=== PATIENT | female | born 2005 | race American Indian/Alaskan Native ===

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

== ENCOUNTER 2025-06-05 07:01 | Emergency (ER) | payer OTHER, MEDICAID ==
[2025-06-05] MEDS ORDERED: Sodium Chloride 0.9% 10 ML Syringe FLUSH PRN (07:11)
[2025-06-05 07:22] LABS: BASOPHILS PERCENT AUTO 0.3 % (0.0-1.0); EOSINOPHILS PERCENT AUTO 0.6 % (1.0-3.0); LYMPHOCYTES PERCENT AUTO 17.9 % (20.5-50.1); MONOCYTES PERCENT AUTO 5.6 % (2-8); NEUTROPHILS PERCENT AUTO 75.6 % (42.2-75.2); PLATELET COUNT,PLT 508 10^3/uL (150-450); RED BLOOD CELL COUNT 5.12 10^6/uL (4.2-5.4); WHITE BLOOD CELL COUNT,WBC 10.4 10^3/uL (5.0-10.0)
[2025-06-05 07:45] LABS: A/G RATIO 0.7; ALANINE AMINOTRANSFERASE,ALT 25 U/L (14-59); BLOOD UREA NITROGEN,BUN 7 mg/dL (7-18); CARBON DIOXIDE,CO2 22 mmol/L (21-32); CHLORIDE,CL 108 mmol/L (98-107); GLUCOSE RANDOM 112 mg/dL (70-99); POTASSIUM,K 3.3 mmol/L (3.5-5.1); PROTEIN TOTAL,TP 8.3 g/dL (6.4-8.2); SODIUM,NA 143 mmol/L (136-145)
[2025-06-05 07:52] LABS: LACTIC ACID 3.2 mmol/L (0.4-2.0)
[2025-06-05 07:55] LABS: HCG QUALITATIVE,SERUM NEGATIVE (NEGATIVE)
[2025-06-05 08:02] LABS: CREATININE 0.68 mg/dL (0.55-1.02)
[2025-06-05 08:04] LABS: ASPARTATE AMNIOTRANSFERASE,AST 19 U/L (15-37); BILIRUBIN TOTAL 0.1 mg/dL (0.2-1.0); ESTIMATED GFR 128 mL/min (>=60); ETHANOL BLOOD MEDICAL 168 mg/dL (0)
[2025-06-05 08:24] LABS: INR 1.0 (0.9-1.2); PTT,PARTIAL THROMBOPLSTIN TIME 24.3 SEC (22.0-34.0)
[2025-06-05] MEDS: Lidocaine 2% with EPINEPHrine 1:200,000 20 ML SDV INJECT ONE (10:42)
== END 2025-06-05 12:00 | disposition home or self-care (01) ==
LOC: DL.ED 07:01
DX: S61.012A Laceration without foreign body of left thumb without damage to nail, initial encounter (principal); S09.90XA Unspecified injury of head, initial encounter; F10.120 Alcohol abuse with intoxication, uncomplicated; Z79.899 Other long term (current) drug therapy; Y90.9 Presence of alcohol in blood, level not specified; V48.5XXA Car driver injured in noncollision transport accident in traffic accident, initial encounter; Y93.89 Activity, other specified
CPT/HCPCS: 12001; 36415; 70450; 71045; 71260; 72125; 72170; 73130; 74177; 80053; 80307; 83605; 83735; 84703; 85025; 85610; 85730; 86850; 86900; 86901; 96360; 96361; 99284; A9270; J2004; J7030